=== PATIENT | female | born 1990 | race Caucasian/White ===

== ENCOUNTER 2021-03-13 14:21 | Outpatient (CLI) | payer BC, SELFPAY | END 2021-03-13 14:22 | disposition home or self-care (01) | LOC: ANHCOVIDVC 14:21 | PROVIDERS: PCP Internal Medicine | DX: Z23 Encounter for immunization (principal) | CPT/HCPCS: 0001A; 91300 ==

== ENCOUNTER 2021-04-03 14:15 | Outpatient (CLI) | payer BC, SELFPAY | END 2021-04-03 14:16 | disposition home or self-care (01) | LOC: ANHCOVIDVC 14:16 | PROVIDERS: PCP Internal Medicine | DX: Z23 Encounter for immunization (principal) | CPT/HCPCS: 0002A; 91300 ==

== ENCOUNTER 2021-11-15 17:39 | Emergency (ER) | payer BC, SELFPAY ==
[2021-11-15 17:48] VITALS: BP 129/87; PULSE 83; RESP 20; TEMP 36.6; O2SAT 100
--- NOTE | 2021-11-15 18:10 | ED.URI ---
HPI - URI/Sore Throat General Chief Complaint: Upper Respiratory Infection Stated Complaint: cough/sob/chest pain/mucus Time Seen by Provider: 11/15/21 17:57 Source: patient and RN notes reviewed Mode of arrival: ambulatory Limitations: no limitations History of Present Illness HPI Narrative: Patient presents today with a 6-day history of cough, bilateral ear pressure, body aches, chest wall pain with coughing. She reports sweats today. She had a virtual visit with her PCP today, was told she had a viral illness and prescribed Tessalon Perles and albuterol. She called them back later and told them she was having the chest wall pain and was told to take Tylenol or come to urgent care for evaluation. She came in because she wanted someone to take a listen to her lungs and make sure she was not developing any pneumonia. She has not yet started the Tessalon Perles or the albuterol inhaler. She has been using cough drops and Aleve D cough and sinus as well as Zyrtec. MD elicited complaint: cough Related Data Allergies Allergy/AdvReac Type Severity Reaction Status Date / Time dog dander Allergy Mild Unknown Verified 11/15/21 13:31 cat dander Allergy Unknown Unknown Verified 11/15/21 13:31 Review of Systems Review of Systems: CONSTITUTIONAL: Denies fever, chills, or sweats.+ Body aches EYES: Denies visual changes, redness, or discharge. ENT: Denies rhinorrhea, congestion, sore throat. + Ear pressure CARDIOVASCULAR: Denies chest pain, palpitations, or edema. RESPIRATORY: Denies dyspnea.+ Cough GASTROINTESTINAL: Denies abdominal pain, nausea, vomiting, or diarrhea. GENITOURINARY: Denies dysuria or hematuria. SKIN: Denies rash, itching, or wounds. MUSCULOSKELETAL: Denies back pain, joint pain, or myalgia. NEUROLOGIC: Denies headache, numbness, tingling, or weakness. PSYCH: Denies depression or anxiety. [facility] Past Medical History Medical History ADHD Allergies Herpes simplex type 1 infection Hiatal hernia HPV (human papilloma virus) infection Surgical History Surgical History History of knee surgery Hx of tonsillectomy [place] teeth removed Family History Family History Grandparent Hypertension Family history of Alzheimer's disease Family history of malignant neoplasm of breast Mother Hypertension Family history of attention deficit hyperactivity disorder (ADHD) Father Depression Family history of alcoholism Family history of cardiovascular disease Family history of congestive heart failure Sibling Family history of attention deficit hyperactivity disorder (ADHD) Social History Social History Smoking status: Never smoker Alcohol intake: current Alcohol use details: rarely Substance use: never Comments At time of signature, I have reviewed and agree with nursing past medical, surgical, social and family history unless otherwise noted. Please see nursing chart for further information. There is no relevant family history pertinent to the presenting complaint Exam Narrative: GENERAL: Well-appearing, well-nourished, and in no acute distress. HEAD: Normocephalic, atraumatic. EYES: EOMI. No redness or drainage. Conjunctivae normal. ENT: Mucous membranes pink and moist. Nares clear. No rhinorrhea. TMs normal bilaterally. Throat normal. Uvula midline. NECK: Normal AROM. Supple. No lymphadenopathy. CHEST: No respiratory distress. Clear to auscultation. Deep breath elicits coughing episode. HEART: Regular rate and rhythm. No murmur appreciated. Normal peripheral pulses. EXTREMITIES: Normal range of motion. No edema. SKIN: Warm, dry, no rash. Capillary refill normal. Normal skin turgor. NEURO: No focal deficits. Alert and oriented x3. Gait steady. PSYCH: [place]
== END 2021-11-15 18:24 | disposition home or self-care (01) ==
PROVIDERS: Emergency Provider Nurse Practitioner; PCP Internal Medicine
DX: J40 Bronchitis, not specified as acute or chronic (principal); J06.9 Acute upper respiratory infection, unspecified
CPT/HCPCS: 99213; G0463